=== PATIENT | male | born 1960 | race Caucasian/White ===

== ENCOUNTER → 2018-06-04 | Outpatient (REF) | payer MEDICARE ==
[2018-06-06 10:11] LABS: HEPATITIS C VIRUS ABY INDEX 0.1 INDEX (<0.8)
== END ==
LOC: M LAB REF 17:06
DX: Z01.89 Encounter for other specified special examinations (principal)
CPT/HCPCS: 86803

== ENCOUNTER 2018-08-20 07:47 | Day surgery (SDC) | payer MEDICARE ==
[~2018-08-20 07:47] MED LIST: NS 1,000 ML IV; PROPOFOL 200 MG/20 ML VIAL As Ordered
[2018-08-20] MEDS ORDERED: LIDOCAINE 2% INJ 100 MG/5 ML SDV (FOR ANES.) As Ordered (07:51)
[2018-08-20] MEDS ORDERED: fentaNYL 100 MCG/2 ML INJECTION (J3010) As Ordered (08:59)
== END 2018-08-20 10:10 | disposition home or self-care (01) ==
LOC: M OPP 07:47
DX: R19.5 Other fecal abnormalities (principal); K64.0 First degree hemorrhoids; K31.89 Other diseases of stomach and duodenum; K30 Functional dyspepsia; R13.10 Dysphagia, unspecified; I25.10 Atherosclerotic heart disease of native coronary artery without angina pectoris; I50.42 Chronic combined systolic (congestive) and diastolic (congestive) heart failure; I47.1 Supraventricular tachycardia; I11.0 Hypertensive heart disease with heart failure; I77.810 Thoracic aortic ectasia; G62.9 Polyneuropathy, unspecified; E78.00 Pure hypercholesterolemia, unspecified; Z79.02 Long term (current) use of antithrombotics/antiplatelets; Z79.82 Long term (current) use of aspirin; Z79.891 Long term (current) use of opiate analgesic; Z79.899 Other long term (current) drug therapy; Z91.048 Other nonmedicinal substance allergy status; Z95.5 Presence of coronary angioplasty implant and graft
CPT/HCPCS: 45378

== ENCOUNTER 2018-11-14 12:39 | Outpatient (CLI) | payer MEDICARE ==
[~2018-11-14] VITALS: Ht 160 cm; Wt 79.4 kg
[2018-11-14] VITALS (8 sets, daily range): BP systolic 113–140; BP diastolic 57–75
[~2018-11-14 12:39] MED LIST changes: +/ATOR40TA; +ACET500T2; +ACETAMINOPHEN TAB 650MG DOSE (2X325MG) PO SCH; +ASPI-222 PO; +ASPI325T; +ATOR80TA59 PO; +BACL1TAB9 PO; +CLOP75TA2 PO; +EFFE150C; +FLEXERIL; +FURO40TA2 PO; +LASI20TA; +LISI-538 PO; +LISI20TA5; +LOPR100T; +METO1TAB33 PO; +NITR0.4S; +NITR0.4S14 SL; -NS 1,000 ML IV; +OXYC-517 PO; +PLAV75TA2; +PROM12SU; -PROPOFOL 200 MG/20 ML VIAL As Ordered; +TRAM200T23 PO; +TRAM50TA2; +VENL150C43 PO; +diphenhydrAMINE 25 MG CAP PO SCH
[2018-11-14 16:11] LABS: PERCENT SATURATION 2.7 % (19.7-50.0)
== END 2018-11-14 18:35 | disposition home or self-care (01) ==
LOC: M INFU 12:39
PROVIDERS: ATTEND Internal Medicine
DX: D64.9 Anemia, unspecified (principal)
CPT/HCPCS: 36430; 82728; 83550; 86850; 86900; 86901; 86920; P9016

== ENCOUNTER 2019-09-16 14:23 | Emergency (ER) | payer MEDICARE ==
[~2019-09-16] VITALS: Ht 177.8 cm; Wt 73.9 kg
[~2019-09-16 14:23] MED LIST changes: -/ATOR40TA; -ACETAMINOPHEN TAB 650MG DOSE (2X325MG) PO SCH; -ASPI-222 PO; +ASPI-527 PO; +LIPI1TAB2; -diphenhydrAMINE 25 MG CAP PO SCH
[2019-09-16] MEDS ORDERED: ASPI81TA26 PO (14:40)
[2019-09-16] MEDS ORDERED: FURO20TA2 PO (14:42)
[2019-09-16] MEDS ORDERED: FERR325T18 PO (14:43)
[2019-09-16] MEDS ORDERED: OMEP-221 PO (14:43)
[2019-09-16] MEDS ORDERED: Medical Marijuana PO (14:44)
[2019-09-16 14:54] LABS: BASO # 0.1 10^3/uL (0.0-0.2); BASO % 1.2 % (0.0-1.0); EOS # 0.1 10^3/uL (0.0-0.5); EOS % 1.4 % (0.0-3.0); HEMATOCRIT 42.6 % (42.0-52.0); HEMOGLOBIN 14.9 g/dl (13.5-17.5); LYMPH % 25.5 % (24.0-44.0); MEAN CORPUSCULAR HEMOGLOBIN 32.7 pg (27.0-33.0); MEAN CORPUSCULAR VOLUME 93.4 fl (80.0-96.0); MONO # 0.7 10^3/uL (0.0-0.8); MONO % 9.3 % (0.0-5.0); NEUTROPHILS # 4.8 10^3/uL (1.5-8.5); NEUTROPHILS % 62.3 % (36.0-66.0); PLATELET COUNT, AUTOMATED 246 10^3/uL (150-450); RED BLOOD COUNT 4.56 10^6/uL (4.30-6.10); WHITE BLOOD COUNT 7.8 10^3/uL (4.0-10.0)
[2019-09-16 15:20] LABS: ALBUMIN 4.5 GM/DL (3.2-5.2); ALT/SGPT 35 U/L (12-78); BILIRUBIN,DIRECT 0.2 MG/DL (0.0-0.2); BILIRUBIN,TOTAL 0.7 MG/DL (0.2-1.0); BLOOD UREA NITROGEN 18 MG/DL (7-18); CALCIUM LEVEL 9.2 MG/DL (8.8-10.2); CARBON DIOXIDE LEVEL 27 MEQ/L (21-32); CHLORIDE LEVEL 106 MEQ/L (98-107); CK-MB VALUE MASS 2.7 NG/ML (<3.6); CPK CREATINE PHOSPHOKINASE 289 U/L (39-308); CREATININE FOR GFR 0.87 MG/DL (0.70-1.30); GLOMERULAR FILTRATION RATE > 60.0 (>49); GLUCOSE, FASTING 99 MG/DL (70-100); LIPASE 100 U/L (73-393); MB/CK RELATIVE INDEX 0.93 (< OR =4); POTASSIUM SERUM 3.9 MEQ/L (3.5-5.1); SODIUM LEVEL 139 MEQ/L (136-145); TOTAL PROTEIN 7.8 GM/DL (6.4-8.2); TROPONIN I < 0.02 NG/ML (< 0.10)
[2019-09-16 15:36] LABS: INR 1.01; PROTHROMBIN TIME 13.1 SECONDS (11.8-14.0)
[2019-09-16] MEDS ORDERED: ISOVUE-370 76% 100ML VIAL (Q9967) As Ordered ONE (15:41)
--- NOTE | 2019-09-16 15:44 | REP ---
Clinical: Chest pain . Comparison: 03/24/2010 . Findings: The mediastinum and cardiac silhouette are stable and within normal limits for portable technique. Evidence of prior sternotomy and CABG. The lung martinez demonstrate chronic interstitial changes without acute consolidation, effusion, or pneumothorax. Skeletal structures demonstrate generative changes and prior right shoulder replacement. Impression: No acute cardiopulmonary process appreciated. Electronically Signed by Sanjiv Newsome MD 09/16/2019 03:35 P
[2019-09-16] MEDS ORDERED: ASPIRIN 81 MG CHEW TABLET PO ONE (15:45)
--- NOTE | 2019-09-16 16:56 | REP ---
Clinical: Chest pain and shortness of breath. Technique: Axial contrast enhanced images from the thoracic inlet to the upper abdomen using 100 ml Isovue 370 intravenous contrast material with multiplanar re-formations. Findings: Satisfactory enhancement of the pulmonary vasculature is achieved and no filling defects are identified to suggest pulmonary embolus. Further evaluation of the mediastinum demonstrates atherosclerotic changes to the thoracic aorta and coronary arteries without aortic aneurysm or cardiomegaly. No pericardial effusion. Evidence of prior sternotomy and CABG noted. The bilateral lung martinez demonstrate emphysematous changes along with scattered subpleural fibrosis and mild bronchiectasis. Small area of atelectasis/infiltrate at the right base. No effusion. No pneumothorax. Mild hilar adenopathy suggested. Surrounding musculoskeletal structures demonstrate age-related changes without focal abnormality. Impression: 1. No evidence for pulmonary embolus. 2. Chronic findings including emphysematous changes with scattered subpleural fibrosis. 3. Minimal right basilar atelectasis/infiltrate warrants followup. Electronically Signed by Sanjiv Newsome MD 09/16/2019 04:48 P
[2019-09-16 21:04] LABS: CK-MB VALUE MASS 1.9 NG/ML (<3.6); CPK CREATINE PHOSPHOKINASE 227 U/L (39-308); MB/CK RELATIVE INDEX 0.84 (< OR =4); TROPONIN I < 0.02 NG/ML (< 0.10)
[2019-09-16 21:30] VITALS: BP 108/91
[2019-09-16] MEDS ORDERED: NITR0.4S14 SL (22:00)
--- NOTE | 2019-09-17 | ECGEPIP ---
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
--- NOTE | 2019-09-17 00:05 | ECGEPIP ---
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
--- NOTE | 2019-09-21 13:23 | ED PDOC ---
Post-Departure Follow-Up dr banuelos faxed formal report of cta chest for fu Georgiana Bah MD Sep 21, 2019 13:23
== END 2019-09-16 22:07 | disposition home or self-care (01) ==
LOC: M ED 14:23
DX: R07.9 Chest pain, unspecified (principal); R06.01 Orthopnea; I10 Essential (primary) hypertension; E78.5 Hyperlipidemia, unspecified; K21.9 Gastro-esophageal reflux disease without esophagitis; K44.9 Diaphragmatic hernia without obstruction or gangrene; I25.2 Old myocardial infarction; Z91.048 Other nonmedicinal substance allergy status; Z79.899 Other long term (current) drug therapy; Z79.82 Long term (current) use of aspirin; Z79.01 Long term (current) use of anticoagulants; Z87.891 Personal history of nicotine dependence
CPT/HCPCS: 36415; 71045; 71275; 80048; 80076; 82550; 82553; 83690; 84484; 85025; 85610; 93005; 93041; 94760; 99285; Q9967

== ENCOUNTER → 2019-10-13 | Outpatient (CLI) | payer MEDICARE ==
[~2019-10-13] MED LIST changes: +ASPI81TA26 PO; +FERR325T18 PO; +FURO20TA2 PO; +Medical Marijuana PO; +OMEP-221 PO
--- NOTE | 2019-10-13 11:40 | REP ---
Clinical: Right hand pain Technique: AP, lateral, bilateral oblique views right hand . Findings: The osseous structures and joint spaces are intact and there is no evidence for acute fracture or dislocation. Generalized age-related arthritic changes noted. Surrounding soft tissues are unremarkable. No subcutaneous emphysema or radiodense foreign body. Impression: Generalized age-related changes. Electronically Signed by Sanjiv Newsome MD 10/13/2019 11:31 A
--- NOTE | 2019-10-13 11:41 | REP ---
Clinical: Pain Technique: AP, lateral, bilateral oblique views right wrist . Findings: The carpal bones, surrounding osseous structures, soft tissues, and joint spaces are essentially age-appropriate. There is no evidence for acute fracture or dislocation. No subcutaneous emphysema or radiodense foreign body. Impression: Normal age-appropriate right wrist series. No acute fracture or dislocation Electronically Signed by Sanjiv Newsome MD 10/13/2019 11:32 A
--- NOTE | 2019-10-13 11:42 | REP ---
Clinical: Pain. Technique: AP and lateral views of the right forearm. Findings: No acute fracture dislocation. No subcutaneous emphysema. No foreign body. Impression: Normal age-appropriate right forearm radiographs. Electronically Signed by Sanjiv Newsome MD 10/13/2019 11:34 A
== END ==
LOC: M WUC 11:16
PROVIDERS: ATTEND Nurse Practitioner Family
DX: M19.041 Primary osteoarthritis, right hand (principal)

== ENCOUNTER → 2021-12-05 | Outpatient (CLI) | payer MEDICARE ==
[~2021-12-05] MED LIST changes: -LISI-538 PO; +LISI20TA33 PO; -OMEP-221 PO; +OMEP40CA5 PO
[2021-12-05 16:22] LABS: HEMATOCRIT 41.9 % (42.0-52.0); HEMOGLOBIN 13.8 g/dl (13.5-17.5); MEAN CORPUSCULAR HEMOGLOBIN 31.8 pg (27.0-33.0); MEAN CORPUSCULAR HGB CONC 32.9 g/dl (32.0-36.5); MEAN CORPUSCULAR VOLUME 96.5 fl (80.0-96.0); PLATELET COUNT, AUTOMATED 215 10^3/uL (150-450); RED BLOOD COUNT 4.34 10^6/uL (4.30-6.10); WHITE BLOOD COUNT 9.5 10^3/uL (4.0-10.0)
[2021-12-05 16:35] LABS: INR 0.94
[2021-12-05 16:36] LABS: PARTIAL THROMBOPLASTIN TIME 32.6 SECONDS (25.9-37.0)
[2021-12-05 16:43] LABS: BLOOD UREA NITROGEN 20 MG/DL (7-18); CALCIUM LEVEL 9.3 MG/DL (8.8-10.2); CARBON DIOXIDE LEVEL 28 MEQ/L (21-32); CHLORIDE LEVEL 105 MEQ/L (98-107); GLOMERULAR FILTRATION RATE > 60.0 (>49); GLUCOSE, FASTING 72 MG/DL (70-100); POTASSIUM SERUM 4.3 MEQ/L (3.5-5.1); SODIUM LEVEL 139 MEQ/L (136-145)
== END ==
LOC: M WUC 10:55
PROVIDERS: ATTEND Orthopaedic Surgery
DX: Z01.818 Encounter for other preprocedural examination (principal); R58 Hemorrhage, not elsewhere classified

== ENCOUNTER → 2022-04-30 | Outpatient (CLI) | payer MEDICARE ==
[~2022-04-30] MED LIST changes: +TRAM200T20 PO; -TRAM200T23 PO
== END ==
LOC: M WUC 11:09
PROVIDERS: ATTEND Physician Assistant
DX: M79.642 Pain in left hand (principal)

== ENCOUNTER → 2022-08-14 | Outpatient (CLI) | payer MEDICARE ==
[~2022-08-14] MED LIST changes: +E-Z-GAS II EFFERVESCENT PACKET (SODIUM BICARB./CITRIC ACID/SIMETHICONE) As Ordered ONE; +E-Z-HD 98% w/w 340GM SUSP BTL As Ordered ONE; +E-Z-PAQUE 96% w/w SUSP 176GM BTL As Ordered ONE
== END ==
LOC: M RAD 08:00
PROVIDERS: ATTEND Internal Medicine
DX: R13.10 Dysphagia, unspecified (principal); Q38.7 Congenital pharyngeal pouch

== ENCOUNTER → 2024-02-24 | Outpatient (REF) | payer MEDICARE ==
[~2024-02-24] MED LIST changes: -E-Z-GAS II EFFERVESCENT PACKET (SODIUM BICARB./CITRIC ACID/SIMETHICONE) As Ordered ONE; -E-Z-HD 98% w/w 340GM SUSP BTL As Ordered ONE; -E-Z-PAQUE 96% w/w SUSP 176GM BTL As Ordered ONE
[2024-02-24 16:30] LABS: APPEARANCE, URINE HAZY (CLEAR); BACTERIA, URINE AUTO NEGATIVE (NEGATIVE); BILIRUBIN, URINE AUTO NEGATIVE (NEGATIVE); BLOOD, URINE BLOOD 3+ (NEGATIVE); COLOR, URINE AMBER (YELLOW); GLUCOSE, URINE (UA) AUTO NEGATIVE (NEGATIVE); KETONE, URINE AUTO NEGATIVE (NEGATIVE); LEUKOCYTE ESTERASE, URINE AUTO NEGATIVE (NEGATIVE); MUCUS, URINE SMALL (NEGATIVE); NITRITE, URINE AUTO NEGATIVE (NEGATIVE); PROTEIN, URINE AUTO 1+ mg/dL (NEGATIVE); RBC, URINE AUTO TNTC /HPF (0-3); SPECIFIC GRAVITY URINE AUTO 1.035 (1.002-1.035); SQUAMOUS EPITHELIAL CELL UR AU 1 /HPF (0-6); WBC, URINE AUTO 1 /HPF (0-3)
== END ==
LOC: M LAB REF 16:00
PROVIDERS: ATTEND Internal Medicine
DX: R31.0 Gross hematuria (principal)

== ENCOUNTER → 2024-03-02 | Outpatient (REF) | payer MEDICARE | LOC: M LAB REF 16:20 | PROVIDERS: ATTEND Internal Medicine | DX: R31.0 Gross hematuria (principal) ==

== ENCOUNTER → 2024-03-06 | Outpatient (CLI) | payer MEDICARE ==
[~2024-03-06] MED LIST changes: +ISOVUE-370 76% 100ML VIAL As Ordered ONE
== END ==
LOC: M RAD 13:41
PROVIDERS: ATTEND Internal Medicine
DX: R31.0 Gross hematuria (principal); N20.0 Calculus of kidney; K80.20 Calculus of gallbladder without cholecystitis without obstruction
CPT/HCPCS: 74178; Q9967

== ENCOUNTER → 2024-03-09 | Outpatient (REF) | payer MEDICARE ==
[~2024-03-09] MED LIST changes: -ISOVUE-370 76% 100ML VIAL As Ordered ONE
== END ==
LOC: M LAB REF 12:46
PROVIDERS: ATTEND Internal Medicine
DX: R31.0 Gross hematuria (principal)

== ENCOUNTER → 2024-03-13 | Outpatient (REF) | payer MEDICARE ==
[~2024-03-13] MED LIST changes: +GABA-1171 PO
[2024-03-13 18:02] LABS: APPEARANCE, URINE HAZY (CLEAR); BACTERIA, URINE AUTO NEGATIVE (NEGATIVE); BILIRUBIN, URINE AUTO NEGATIVE (NEGATIVE); BLOOD, URINE BLOOD 3+ (NEGATIVE); COLOR, URINE YELLOW (YELLOW); GLUCOSE, URINE (UA) AUTO NEGATIVE (NEGATIVE); KETONE, URINE AUTO NEGATIVE (NEGATIVE); LEUKOCYTE ESTERASE, URINE AUTO NEGATIVE (NEGATIVE); NITRITE, URINE AUTO NEGATIVE (NEGATIVE); PROTEIN, URINE AUTO 1+ mg/dL (NEGATIVE); RBC, URINE AUTO TNTC /HPF (0-3); SPECIFIC GRAVITY URINE AUTO 1.014 (1.002-1.035); SQUAMOUS EPITHELIAL CELL UR AU 0 /HPF (0-6); UROBILINOGEN, URINE AUTO 0.2 mg/dL (0.0-2.0); WBC, URINE AUTO 2 /HPF (0-3)
== END ==
LOC: M LABSMT 13:34
PROVIDERS: ATTEND Urology
DX: R31.0 Gross hematuria (principal)

== ENCOUNTER → 2024-03-19 | Outpatient (REF) | payer MEDICARE ==
[~2024-03-19] MED LIST changes: -GABA-1171 PO
== END ==
LOC: M SMT 03-18 13:00 → M LABWUC 13:00 → M SMT 13:00
PROVIDERS: ATTEND Urology
DX: R31.0 Gross hematuria (principal); Z12.5 Encounter for screening for malignant neoplasm of prostate
CPT/HCPCS: 36415; G0103

== ENCOUNTER → 2024-04-01 | Outpatient (REF) | payer MEDICARE ==
[2024-04-01 18:02] LABS: APPEARANCE, URINE CLEAR (CLEAR); BACTERIA, URINE AUTO NEGATIVE (NEGATIVE); BILIRUBIN, URINE AUTO NEGATIVE (NEGATIVE); BLOOD, URINE BLOOD 2+ (NEGATIVE); COLOR, URINE YELLOW (YELLOW); GLUCOSE, URINE (UA) AUTO NEGATIVE (NEGATIVE); KETONE, URINE AUTO NEGATIVE (NEGATIVE); LEUKOCYTE ESTERASE, URINE AUTO NEGATIVE (NEGATIVE); MUCUS, URINE SMALL (NEGATIVE); NITRITE, URINE AUTO NEGATIVE (NEGATIVE); PROTEIN, URINE AUTO 1+ mg/dL (NEGATIVE); RBC, URINE AUTO 41 /HPF (0-3); SPECIFIC GRAVITY URINE AUTO 1.026 (1.002-1.035); SQUAMOUS EPITHELIAL CELL UR AU 0 /HPF (0-6); UROBILINOGEN, URINE AUTO 0.2 mg/dL (0.0-2.0); WBC, URINE AUTO 1 /HPF (0-3)
== END ==
LOC: M SMT 16:57
PROVIDERS: ATTEND Urology
DX: R31.0 Gross hematuria (principal)

== ENCOUNTER → 2024-05-11 | Outpatient (CLI) | payer MEDICARE ==
[~2024-05-11] MED LIST changes: +GABA-1171 PO
[2024-05-11 17:48] LABS: HEMATOCRIT 37.8 % (42.0-52.0); HEMOGLOBIN 12.3 g/dl (13.5-17.5); MEAN CORPUSCULAR HEMOGLOBIN 32.6 pg (27.0-33.0); MEAN CORPUSCULAR HGB CONC 32.5 g/dl (32.0-36.5); MEAN CORPUSCULAR VOLUME 100.3 fl (80.0-96.0); PLATELET COUNT, AUTOMATED 256 10^3/uL (150-450); RED BLOOD COUNT 3.77 10^6/uL (4.30-6.10); WHITE BLOOD COUNT 10.8 10^3/uL (4.0-10.0)
[2024-05-11 18:12] LABS: ALBUMIN 3.8 G/DL (3.2-5.2); ALKALINE PHOSPHATASE 107 U/L (46-116); ALT/SGPT 21 U/L (7.0-40); AST/SGOT 21 U/L (<34); BILIRUBIN,TOTAL 0.3 MG/DL (0.3-1.2); BLOOD UREA NITROGEN 22 MG/DL (9-23); CALCIUM LEVEL 9.3 MG/DL (8.3-10.6); CARBON DIOXIDE LEVEL 28 MMOL/L (20-31); CHLORIDE LEVEL 106 MMOL/L (98-107); CREATININE FOR GFR 0.81 MG/DL (0.70-1.30); GLOMERULAR FILTRATION RATE > 60.0 (>49); GLUCOSE, FASTING 106 MG/DL (74-106); POTASSIUM SERUM 4.5 MMOL/L (3.5-5.1); SODIUM LEVEL 141 MMOL/L (136-145); TOTAL PROTEIN 6.8 G/DL (5.7-8.2)
== END ==
LOC: M WUC 14:07
PROVIDERS: ATTEND Urology
DX: R31.0 Gross hematuria (principal); R91.8 Other nonspecific abnormal finding of lung field

== ENCOUNTER 2024-05-18 07:10 | Day surgery (SDC) | payer MEDICARE ==
[~2024-05-18] VITALS: Ht 177.8 cm; Wt 69.9 kg
[2024-05-18] MEDS ORDERED: propofoL 200 MG/20 ML VIAL As Ordered ONE (07:45)
[2024-05-18] MEDS ORDERED: LIDOCAINE 2% INJ 100 MG/5 ML SYRINGE As Ordered ONE (07:45)
[2024-05-18] MEDS ORDERED: fentaNYL 100 MCG/2 ML INJECTION As Ordered ONE (07:46)
[2024-05-18] MEDS ORDERED: MIDAZOLAM INJ 2MG/2ML VIAL As Ordered ONE (07:46)
[2024-05-18] MEDS: LR 1,000 ML IV SCH (08:06)
[2024-05-18] MEDS: ceFAZolin SOD 2 GM in IV 1 EA IV ONE (08:30)
[2024-05-18] MEDS: ISOVUE-300 61% 100ML VIAL As Ordered ONE (08:44)
[2024-05-18] MEDS ORDERED: ACETAMINOPHEN 1000MG 100ML IV BAG As Ordered ONE (08:44)
[2024-05-18] MEDS ORDERED: ONDANSETRON 4MG 2ML VIAL As Ordered ONE (08:46)
[2024-05-18] MEDS ORDERED: oxyCODONE 5MG TAB PO PRN (09:05)
[2024-05-18] MEDS ORDERED: ONDANSETRON 4MG 2ML VIAL IV PRN (09:05)
[2024-05-18] MEDS ORDERED: HYDROMORPHONE HCL 0.5 MG/ 0.5 ML SYRINGE IV PRN (09:05)
[2024-05-18] MEDS ORDERED: fentaNYL 100 MCG/2 ML INJECTION IV PRN (09:05)
[2024-05-18] MEDS ORDERED: LR 1,000 ML IV SCH (09:05)
[2024-05-18 09:37] VITALS: BP 142/78; TEMP 98.2; O2SAT 97
== END 2024-05-18 10:01 | disposition home or self-care (01) ==
LOC: M SDC 07:10
PROVIDERS: ATTEND Urology
DX: R31.0 Gross hematuria (principal); I25.10 Atherosclerotic heart disease of native coronary artery without angina pectoris; I25.2 Old myocardial infarction; Z95.5 Presence of coronary angioplasty implant and graft; I10 Essential (primary) hypertension; E78.00 Pure hypercholesterolemia, unspecified; K21.9 Gastro-esophageal reflux disease without esophagitis; M54.9 Dorsalgia, unspecified; Z91.048 Other nonmedicinal substance allergy status; Z79.899 Other long term (current) drug therapy; Z79.02 Long term (current) use of antithrombotics/antiplatelets; Z79.82 Long term (current) use of aspirin
CPT/HCPCS: 52351; 76000; C1769; J0131; J0690; J1100; J2250; J2405; J3010; Q9967

== ENCOUNTER → 2024-05-27 | Outpatient (CLI) | payer MEDICARE | LOC: M WUC 09:47 | PROVIDERS: ATTEND Physician Assistant Medical | DX: M54.16 Radiculopathy, lumbar region (principal); M54.14 Radiculopathy, thoracic region; Z98.890 Other specified postprocedural states ==

== ENCOUNTER → 2024-07-29 | Outpatient (CLI) | payer MEDICARE | LOC: M PLAIMG 08:56 | PROVIDERS: ATTEND Internal Medicine | DX: R91.8 Other nonspecific abnormal finding of lung field (principal); J47.9 Bronchiectasis, uncomplicated; K80.20 Calculus of gallbladder without cholecystitis without obstruction ==

== ENCOUNTER → 2024-08-18 | Outpatient (CLI) | payer MEDICARE | LOC: M PLARAD 14:26 | PROVIDERS: ATTEND Internal Medicine | DX: R91.1 Solitary pulmonary nodule (principal) | CPT/HCPCS: 78815; A9552 ==

== ENCOUNTER → 2024-09-01 | Outpatient (CLI) | payer MEDICARE ==
[2024-09-01 12:15] LABS: PLATELET COUNT, AUTOMATED 259 10^3/uL (150-450)
[2024-09-01 12:32] LABS: PARTIAL THROMBOPLASTIN TIME 31.5 SECONDS (24.8-34.2); PROTHROMBIN TIME 13.5 SECONDS (12.5-14.5)
== END ==
LOC: M WUC 10:26
PROVIDERS: ATTEND Internal Medicine Critical Care Medicine
DX: R91.8 Other nonspecific abnormal finding of lung field (principal); Z79.01 Long term (current) use of anticoagulants

== ENCOUNTER → 2024-09-02 | Outpatient (CLI) | payer MEDICARE ==
[~2024-09-02] MED LIST changes: +PROHANCE 279.3MG/ML 15ML VIAL As Ordered ONE
== END ==
LOC: M RAD 12:09
PROVIDERS: ATTEND Internal Medicine
DX: M48.062 Spinal stenosis, lumbar region with neurogenic claudication (principal); M43.16 Spondylolisthesis, lumbar region; M51.360 Other intervertebral disc degeneration, lumbar region with discogenic back pain only
CPT/HCPCS: 72158; A9576

== ENCOUNTER → 2024-09-14 | Outpatient (CLI) | payer MEDICARE ==
[~2024-09-14] MED LIST changes: +LIDOCAINE 1% MDV 20ML VIAL As Ordered ONE; -PROHANCE 279.3MG/ML 15ML VIAL As Ordered ONE
[2024-09-14 13:48] VITALS: TEMP 97.7
[2024-09-14 14:17] VITALS: BP 133/71; O2SAT 98
== END ==
LOC: M IRPRO 13:41
PROVIDERS: ATTEND Internal Medicine Critical Care Medicine
DX: R91.8 Other nonspecific abnormal finding of lung field (principal); C79.89 Secondary malignant neoplasm of other specified sites

== ENCOUNTER → 2024-10-01 | Outpatient (CLI) | payer MEDICARE ==
[~2024-10-01] MED LIST changes: +GABA-1490; -LIDOCAINE 1% MDV 20ML VIAL As Ordered ONE; +OXYC20TA2 PO; +PROM25TA12
== END ==
LOC: M ONCR 09:02
PROVIDERS: ATTEND General Practice
DX: C34.11 Malignant neoplasm of upper lobe, right bronchus or lung (principal); Z87.891 Personal history of nicotine dependence; Z91.048 Other nonmedicinal substance allergy status; Z79.891 Long term (current) use of opiate analgesic; Z79.82 Long term (current) use of aspirin; Z79.02 Long term (current) use of antithrombotics/antiplatelets; Z79.899 Other long term (current) drug therapy

== ENCOUNTER → 2024-10-05 | Outpatient (CLI) | payer MEDICARE ==
[~2024-10-05] MED LIST changes: +LIDO30CR18 TOP; +LIDOCAINE 1% MDV 20ML VIAL As Ordered ONE; +MIDAZOLAM INJ 2MG/2ML VIAL As Ordered ONE; +NS (Normal Saline) 0.9% 1,000 ML IV SCH; +ONDA-84 PO; +PROC10TA5 PO; +ceFAZolin 2 GM/D5W 50 ML IV BAG As Ordered ONE; +fentaNYL 100 MCG/2 ML INJECTION As Ordered ONE
[2024-10-05 12:40] VITALS: TEMP 97.3
[2024-10-05] MEDS: ceFAZolin SOD 2 GM in IV 1 EA IV ONE (13:00)
[2024-10-05 15:00] VITALS: BP 127/70; O2SAT 94
== END ==
LOC: M IRPRO 11:59
PROVIDERS: ATTEND Internal Medicine Medical Oncology
DX: C34.90 Malignant neoplasm of unspecified part of unspecified bronchus or lung (principal)
CPT/HCPCS: 36561; 99152; 99153; C1769; C1894; J0690; J2250; J3010

== ENCOUNTER 2024-10-06 07:50 | Outpatient (RCR) | payer MEDICARE ==
[~2024-10-06 07:50] MED LIST changes: -LIDO30CR18 TOP; -LIDOCAINE 1% MDV 20ML VIAL As Ordered ONE; -MIDAZOLAM INJ 2MG/2ML VIAL As Ordered ONE; -NS (Normal Saline) 0.9% 1,000 ML IV SCH; -ONDA-84 PO; -PROC10TA5 PO; -ceFAZolin 2 GM/D5W 50 ML IV BAG As Ordered ONE; -fentaNYL 100 MCG/2 ML INJECTION As Ordered ONE
[2024-10-06] MEDS ORDERED: LIDO30CR18 TOP (13:33)
[2024-10-06] MEDS ORDERED: ONDA-84 PO (14:26)
[2024-10-06] MEDS ORDERED: PROC10TA5 PO (14:26)
== END 2024-10-20 ==
LOC: M ONCR 07:50
PROVIDERS: ATTEND General Practice
DX: Z51.0 Encounter for antineoplastic radiation therapy (principal); C34.11 Malignant neoplasm of upper lobe, right bronchus or lung

== ENCOUNTER → 2024-10-29 | Outpatient (CLI) | payer MEDICARE ==
[~2024-10-29] MED LIST changes: +LIDO30CR18 TOP; +ONDA-84 PO; +PROC10TA5 PO; +PROHANCE 279.3MG/ML 15ML VIAL As Ordered ONE
== END ==
LOC: M RAD 08:51
PROVIDERS: ATTEND General Practice
DX: C34.11 Malignant neoplasm of upper lobe, right bronchus or lung (principal); R90.82 White matter disease, unspecified

== ENCOUNTER 2024-10-30 11:35 | Emergency (ER) | payer MEDICARE ==
[~2024-10-30 11:35] MED LIST changes: -PROHANCE 279.3MG/ML 15ML VIAL As Ordered ONE
[2024-10-30 11:44] VITALS: BP 119/60; TEMP 98.7; O2SAT 95
[2024-10-30] MEDS: ONDANSETRON 4MG 2ML VIAL IV ONE (12:09)
[2024-10-30 12:25] LABS: VENOUS BASE EXCESS -1.1 (-2.0-2.0); VENOUS HCO3 23.4 MMOL/L (23.0-27.0); VENOUS O2 SATURATION 92.9 % (60.0-80.0); VENOUS PARTIAL PRESSURE CO2 38.7 mmHg (38.0-50.0); VENOUS PARTIAL PRESSURE O2 65.6 mmHg (30.0-50.0); VENOUS STANDARD HCO3 23.4 MMOL/L; VENOUS TOTAL CO2 24.6 MMOL/L (24.0-28.0)
[2024-10-30 12:34] LABS: BASO % 0.2 % (0.0-1.0); HEMATOCRIT 32.2 % (42.0-52.0); HEMOGLOBIN 10.8 g/dl (13.5-17.5); LYMPH # 0.9 10^3/uL (1.5-5.0); LYMPH % 6.8 % (24.0-44.0); MEAN CORPUSCULAR HEMOGLOBIN 32.6 pg (27.0-33.0); MEAN CORPUSCULAR HGB CONC 33.5 g/dl (32.0-36.5); MEAN CORPUSCULAR VOLUME 97.3 fl (80.0-96.0); MONO # 0.4 10^3/uL (0.0-0.8); MONO % 2.7 % (2.0-8.0); NEUTROPHILS # 11.8 10^3/uL (1.5-8.5); NEUTROPHILS % 89.8 % (36.0-66.0); PLATELET COUNT, AUTOMATED 260 10^3/uL (150-450); RED BLOOD COUNT 3.31 10^6/uL (4.30-6.10); WHITE BLOOD COUNT 13.2 10^3/uL (4.0-10.0)
[2024-10-30 12:45] LABS: INR 0.96; PARTIAL THROMBOPLASTIN TIME 24.4 SECONDS (24.8-34.2); PROTHROMBIN TIME 13.1 SECONDS (12.5-14.5)
[2024-10-30 13:03] LABS: AMYLASE 44 U/L (30-118); C REACTIVE PROTEIN QUANTITATIV 2.28 MG/DL (<1.0)
[2024-10-30 13:04] LABS: ALKALINE PHOSPHATASE 78 U/L (40-129); ALT/SGPT 22 U/L (7.0-40); AST/SGOT 21 U/L (<34); BILIRUBIN,DIRECT < 0.1 MG/DL (<0.4); BILIRUBIN,TOTAL 0.2 MG/DL (0.3-1.2); BLOOD UREA NITROGEN 40 MG/DL (9-23); CALCIUM LEVEL 8.8 MG/DL (8.3-10.6); CARBON DIOXIDE LEVEL 28 MMOL/L (20-31); CHLORIDE LEVEL 108 MMOL/L (98-107); CREATININE FOR GFR 0.87 MG/DL (0.70-1.30); GLOMERULAR FILTRATION RATE > 60.0 (>49); GLUCOSE, FASTING 100 MG/DL (74-106); POTASSIUM SERUM 3.9 MMOL/L (3.5-5.1); SODIUM LEVEL 145 MMOL/L (136-145); TOTAL PROTEIN 6.6 G/DL (5.7-8.2)
[2024-10-30 13:15] LABS: PROCALCITONIN 0.05 ng/ml
== END 2024-10-30 13:14 | disposition left against medical advice (07) ==
LOC: M ED 11:35
DX: R11.10 Vomiting, unspecified (principal); I25.2 Old myocardial infarction; E78.5 Hyperlipidemia, unspecified; I10 Essential (primary) hypertension; M54.50 Low back pain, unspecified; Z87.891 Personal history of nicotine dependence; Z86.79 Personal history of other diseases of the circulatory system; Z91.048 Other nonmedicinal substance allergy status; Z79.82 Long term (current) use of aspirin; Z79.02 Long term (current) use of antithrombotics/antiplatelets; Z79.83 Long term (current) use of bisphosphonates; Z79.899 Other long term (current) drug therapy; Z53.9 Procedure and treatment not carried out, unspecified reason
CPT/HCPCS: 71045; 80048; 80076; 82150; 82803; 83605; 84145; 85025; 85610; 85730; 86140; 86850; 86900; 86901; 87040; 87486; 87581; 87633; 87798; 93005; 93041; 94760; 96374; 99284; J2405

== ENCOUNTER → 2024-11-11 | Outpatient (CLI) | payer MEDICARE ==
[~2024-11-11] VITALS: Ht 177.8 cm; Wt 72.3 kg
[~2024-11-11] MED LIST changes: +GABA-1490 OR; +MS C30TA6 PO; +OLAN5ZYD PO; +OXYC10TA12 PO
[2024-11-11 13:17] VITALS: BP 121/70; O2SAT 96
== END ==
LOC: M PAL 12:59
PROVIDERS: ATTEND Family Medicine
DX: Z51.5 Encounter for palliative care (principal); C34.90 Malignant neoplasm of unspecified part of unspecified bronchus or lung; G89.3 Neoplasm related pain (acute) (chronic); G89.29 Other chronic pain; K85.90 Acute pancreatitis without necrosis or infection, unspecified; R53.83 Other fatigue; R63.0 Anorexia; R11.0 Nausea; M54.9 Dorsalgia, unspecified; Z79.82 Long term (current) use of aspirin; Z79.02 Long term (current) use of antithrombotics/antiplatelets; Z79.891 Long term (current) use of opiate analgesic; Z79.899 Other long term (current) drug therapy; Z91.048 Other nonmedicinal substance allergy status; Z92.21 Personal history of antineoplastic chemotherapy; Z92.3 Personal history of irradiation

== ENCOUNTER → 2024-11-20 | Outpatient (RCR) | payer MEDICARE ==
[~2024-11-20] MED LIST changes: +MAGICMW SS; +PANT40TA29 PO
== END ==
LOC: M ONCR 10-29 10:23
PROVIDERS: ATTEND General Practice
DX: Z51.0 Encounter for antineoplastic radiation therapy (principal); C34.11 Malignant neoplasm of upper lobe, right bronchus or lung

== ENCOUNTER → 2024-12-01 | Outpatient (CLI) | payer MEDICARE ==
[~2024-12-01] MED LIST changes: +LEVO1TAB40 PO
[2024-12-01 10:56] LABS: BASO % 2.1 % (0.0-1.0); EOS % 1.6 % (0.0-3.0); HEMATOCRIT 28.5 % (42.0-52.0); HEMOGLOBIN 9.3 g/dl (13.5-17.5); LYMPH # 0.2 10^3/uL (1.5-5.0); LYMPH % 9.9 % (24.0-44.0); MEAN CORPUSCULAR HEMOGLOBIN 32.4 pg (27.0-33.0); MEAN CORPUSCULAR HGB CONC 32.6 g/dl (32.0-36.5); MEAN CORPUSCULAR VOLUME 99.3 fl (80.0-96.0); MONO # 0.2 10^3/uL (0.0-0.8); MONO % 9.4 % (2.0-8.0); NEUTROPHILS # 1.5 10^3/uL (1.5-8.5); RED BLOOD COUNT 2.87 10^6/uL (4.30-6.10); WHITE BLOOD COUNT 1.9 10^3/uL (4.0-10.0)
[2024-12-01 11:28] LABS: ALBUMIN 3.4 G/DL (3.2-5.2); ALKALINE PHOSPHATASE 79 U/L (40-129); ALT/SGPT 17 U/L (7.0-40); AST/SGOT 14 U/L (<34); BILIRUBIN,TOTAL 0.4 MG/DL (0.3-1.2); BLOOD UREA NITROGEN 34 MG/DL (9-23); CALCIUM LEVEL 9.1 MG/DL (8.3-10.6); CARBON DIOXIDE LEVEL 29 MMOL/L (20-31); CHLORIDE LEVEL 110 MMOL/L (98-107); CREATININE FOR GFR 0.92 MG/DL (0.70-1.30); GLOMERULAR FILTRATION RATE > 60.0 (>49); GLUCOSE, FASTING 118 MG/DL (74-106); MAGNESIUM LEVEL 1.6 MG/DL (1.8-2.4); POTASSIUM SERUM 4.3 MMOL/L (3.5-5.1); SODIUM LEVEL 145 MMOL/L (136-145); TOTAL PROTEIN 7.3 G/DL (5.7-8.2)
[2024-12-01 11:32] LABS: PLATELET COUNT, AUTOMATED 57 10^3/uL (150-450)
[2024-12-01] MEDS: NS (Normal Saline) 0.9% 1,000 ML IV ONE (11:47)
[2024-12-01] MEDS: dexAMETHasone 20MG/5ML VIAL IV ONE (11:47)
[2024-12-01] MEDS: SODIUM CHLORIDE 0.9% INJ 10 ML SYR IV ONE (13:00)
== END ==
LOC: M ONCR 10:31
PROVIDERS: ATTEND General Practice
DX: E86.0 Dehydration (principal); C34.11 Malignant neoplasm of upper lobe, right bronchus or lung

== ENCOUNTER → 2024-12-01 | Outpatient (CLI) | payer MEDICARE ==
[~2024-12-01] VITALS: Ht 180.3 cm; Wt 70.5 kg
[~2024-12-01] MED LIST changes: +ACET32TAB PO; +AMOX1SUS19 PO; +ATIV1TAB10 PO; +ATIV1TAB7 PO; +ATRO2DRO4 SL; +DOXY100T PO; +GABA-1172 PO; +HYOS125TA PO; +LIDO1ADH20 TP; +LIDO5TD TD; +LISI30TA4 PO; +LORA1TAB23 PO; +MORP1CAP PO; +MORP1TAB21 PO; +MORP30TASA PO; +MYLASSUD PO; +ONDA-83 PO; +OXYC30TA PO; +PROM25TA12 PO; +SUCR1SS PO; +VENL75CA47 PO
[2024-12-01 13:45] VITALS: BP 99/64; O2SAT 95
== END ==
LOC: M PAL 13:18
PROVIDERS: ATTEND Family Medicine
DX: C34.11 Malignant neoplasm of upper lobe, right bronchus or lung (principal); K85.90 Acute pancreatitis without necrosis or infection, unspecified; Z79.69 Long term (current) use of other immunomodulators and immunosuppressants; Z79.82 Long term (current) use of aspirin; Z79.899 Other long term (current) drug therapy; Z91.048 Other nonmedicinal substance allergy status; Z92.3 Personal history of irradiation
CPT/HCPCS: 36591; 80053; 83735; 85025; 85049; 85055; 96360; G0463; J1100; J1642

== ENCOUNTER → 2024-12-15 | Outpatient (CLI) | payer MEDICARE ==
[~2024-12-15] MED LIST changes: -ACET32TAB PO; -AMOX1SUS19 PO; -ATIV1TAB10 PO; -ATIV1TAB7 PO; -ATRO2DRO4 SL; -DOXY100T PO; -GABA-1172 PO; -HYOS125TA PO; -LIDO1ADH20 TP; -LIDO5TD TD; -LISI30TA4 PO; -MORP1CAP PO; -MORP1TAB21 PO; -MORP30TASA PO; -MYLASSUD PO; -ONDA-83 PO; -PROM25TA12 PO; -SUCR1SS PO; -VENL75CA47 PO
== END ==
LOC: M PAL 13:09
PROVIDERS: ATTEND Physician Assistant
DX: Z51.5 Encounter for palliative care (principal); C34.90 Malignant neoplasm of unspecified part of unspecified bronchus or lung; Z92.3 Personal history of irradiation; Z79.891 Long term (current) use of opiate analgesic; Z79.82 Long term (current) use of aspirin; Z79.899 Other long term (current) drug therapy; Z91.048 Other nonmedicinal substance allergy status

== ENCOUNTER → 2024-12-18 | Outpatient (RCR) | payer MEDICARE ==
[2024-12-15] MEDS: SODIUM CHLORIDE 0.9% INJ 10 ML SYR IV PRN (12:43)
[~2024-12-18] MED LIST changes: +LISI30TA4 PO; +PROM25TA12 PO
== END ==
LOC: M ONCR 11-25 10:19
PROVIDERS: ATTEND General Practice
DX: Z51.0 Encounter for antineoplastic radiation therapy (principal); C34.11 Malignant neoplasm of upper lobe, right bronchus or lung
CPT/HCPCS: 36415; 77336; 77386; 87070; 87077; 87186; 87205; J1642

== ENCOUNTER 2024-12-21 10:23 | Outpatient (RCR) | payer MEDICARE ==
[~2024-12-21 10:23] MED LIST changes: -LISI30TA4 PO; -PROM25TA12 PO
[2024-12-21] MEDS ORDERED: LISI30TA4 PO (17:30)
[2024-12-21] MEDS ORDERED: PROM25TA12 PO (17:30)
[2024-12-24] MEDS ORDERED: AMOX1SUS19 PO (13:18)
[2024-12-24] MEDS ORDERED: MORP30TASA PO (13:18)
[2024-12-24] MEDS ORDERED: HYOS125TA PO (13:18)
[2024-12-24] MEDS ORDERED: GABA-1172 PO (13:18)
[2024-12-24] MEDS ORDERED: DOXY100T PO (13:18)
[2024-12-24] MEDS ORDERED: ATIV1TAB10 PO (13:18)
[2024-12-24] MEDS ORDERED: PROM25TA12 PO (13:25)
[2024-12-24] MEDS ORDERED: PANT40TA29 PO (13:25)
[2024-12-24] MEDS ORDERED: ATIV1TAB7 PO (13:25)
[2024-12-24] MEDS ORDERED: OLAN5ZYD PO (13:25)
[2024-12-24] MEDS ORDERED: ATRO2DRO4 SL (13:25)
[2024-12-24] MEDS ORDERED: VENL75CA47 PO (13:25)
[2024-12-24] MEDS ORDERED: ONDA-83 PO (13:25)
[2024-12-24] MEDS ORDERED: SUCR1SS PO (13:25)
[2024-12-24] MEDS ORDERED: OXYC30TA PO (13:29)
[2024-12-24] MEDS ORDERED: LIDO5TD TD (13:29)
[2024-12-24] MEDS ORDERED: ACET32TAB PO (13:29)
[2024-12-24] MEDS ORDERED: MYLASSUD PO (13:29)
[2024-12-24] MEDS ORDERED: MORP1CAP PO (15:25)
[2024-12-24] MEDS ORDERED: LIDO1ADH20 TP (15:27)
[2024-12-28] MEDS ORDERED: MORP1TAB21 PO (11:13)
== END 2025-01-18 ==
LOC: M ONCR 10:23
PROVIDERS: ATTEND General Practice
DX: Z51.0 Encounter for antineoplastic radiation therapy (principal); C34.11 Malignant neoplasm of upper lobe, right bronchus or lung

== ENCOUNTER 2024-12-21 11:06 | Inpatient (IN) | payer MEDICARE ==
[~2024-12-21] VITALS: Ht 177.8 cm; Wt 64.7 kg
[2024-12-21] MEDS ORDERED: ONDANSETRON 4MG 2ML VIAL IV ONE (11:55)
[2024-12-21 12:27] LABS: BASO % 2.9 % (0.0-1.0); EOS % 2.9 % (0.0-3.0); HEMATOCRIT 25.8 % (42.0-52.0); HEMOGLOBIN 8.7 g/dl (13.5-17.5); LYMPH # 0.1 10^3/uL (1.5-5.0); LYMPH % 17.6 % (24.0-44.0); MEAN CORPUSCULAR HEMOGLOBIN 34.3 pg (27.0-33.0); MEAN CORPUSCULAR HGB CONC 33.7 g/dl (32.0-36.5); MEAN CORPUSCULAR VOLUME 101.6 fl (80.0-96.0); MONO # 0.1 10^3/uL (0.0-0.8); MONO % 17.6 % (2.0-8.0); RED BLOOD COUNT 2.54 10^6/uL (4.30-6.10)
[2024-12-21] MEDS: ONDANSETRON 4MG 2ML VIAL IV ONE (12:39)
[2024-12-21] MEDS: ASPIRIN 81MG CHEW TABLET PO ONE (12:39)
[2024-12-21 12:40] LABS: INR 1.04; PARTIAL THROMBOPLASTIN TIME 22.4 SECONDS (24.8-34.2); PROTHROMBIN TIME 13.9 SECONDS (12.5-14.5)
[2024-12-21] MEDS: HYDROMORPHONE HCL 0.5 MG/ 0.5 ML SYRINGE IV ONE ×3 (12:40→16:29)
[2024-12-21 12:45] LABS: NEUTROPHILS # 0.2 10^3/uL (1.5-8.5); PLATELET COUNT, AUTOMATED 35 10^3/uL (150-450)
[2024-12-21 12:46] LABS: WHITE BLOOD COUNT 0.3 10^3/uL (4.0-10.0)
[2024-12-21 12:57] LABS: CPK CREATINE PHOSPHOKINASE 128 U/L (46-171)
[2024-12-21 12:58] LABS: ALBUMIN 3.4 G/DL (3.2-5.2); ALKALINE PHOSPHATASE 71 U/L (40-129); ALT/SGPT 25 U/L (7.0-40); AST/SGOT 29 U/L (<34); BILIRUBIN,DIRECT 0.2 MG/DL (<0.4); BILIRUBIN,TOTAL 0.5 MG/DL (0.3-1.2); BLOOD UREA NITROGEN 80 MG/DL (9-23); CALCIUM LEVEL 9.2 MG/DL (8.3-10.6); CARBON DIOXIDE LEVEL 36 MMOL/L (20-31); CHLORIDE LEVEL 104 MMOL/L (98-107); CK-MB VALUE MASS < 1.0 NG/ML (<3.6); CREATININE FOR GFR 2.02 MG/DL (0.70-1.30); GLOMERULAR FILTRATION RATE 35.5 (>49); GLUCOSE, FASTING 133 MG/DL (74-106); MB/CK RELATIVE INDEX 0.78 (< OR =4); SODIUM LEVEL 151 MMOL/L (136-145); TOTAL PROTEIN 7.1 G/DL (5.7-8.2)
[2024-12-21] MEDS: NS (Normal Saline) 0.9% 1,000 ML IV ONE ×2 (13:35→18:29)
[2024-12-21 14:12] LABS: CK-MB VALUE MASS < 1.0 NG/ML (<3.6)
[2024-12-21 14:26] LABS: CPK CREATINE PHOSPHOKINASE 129 U/L (46-171); MB/CK RELATIVE INDEX 0.77 (< OR =4)
[2024-12-21 15:03] LABS: CK-MB VALUE MASS 1.2 NG/ML (<3.6)
[2024-12-21 15:04] LABS: MB/CK RELATIVE INDEX 0.94 (< OR =4)
[2024-12-21] MEDS ORDERED: MOM 30ML SUSPENSION UDC PO PRN (17:25)
[2024-12-21] MEDS ORDERED: MAALOX 30 ML SUSP *UDC PO PRN (17:25)
[2024-12-21] MEDS ORDERED: LISI30TA4 PO (17:30)
[2024-12-21] MEDS ORDERED: PROM25TA12 PO (17:30)
[2024-12-21] MEDS ORDERED: EMLA CREAM 5GM TUBE (LIDOCAINE/PRILOCAINE) TOP SCH (17:35)
[2024-12-21] MEDS ORDERED: oxyCODONE 5MG TAB PO PRN (17:35)
[2024-12-21] MEDS ORDERED: MORPHINE 4 MG/ML 1ML VIAL IV PRN (17:35)
[2024-12-21] MEDS ORDERED: HOME MED LIST COMPLETE! XX SCH (17:35)
[2024-12-21] MEDS ORDERED: PROMETHAZINE 25 MG TAB PO PRN (17:35)
[2024-12-21] MEDS: PIPERACILLIN/TAZOBACTAM SOD 4.5 GM in DEXTROSE 5% (D5W) ADV/MINI-BAG 50 ML IV ONE (18:28)
[2024-12-21] MEDS ORDERED: KCL 10MEQ/100ML SWI (KRUN) 10 MEQ in IV 1 EA IV ONE (18:40)
[2024-12-21] MEDS: methylPREDNISolone 125MG 2ML VIAL IV ONE (19:00)
[2024-12-21] MEDS: CHLORASEPTIC SPRAY MT PRN (19:01)
[2024-12-21] MEDS: ACETAMINOPHEN 325 MG TAB PO PRN (19:01)
[2024-12-21 19:15] LABS: C REACTIVE PROTEIN QUANTITATIV 1.33 MG/DL (<1.0)
[2024-12-21 19:27] LABS: PROCALCITONIN 0.1 ng/ml
[2024-12-21] MEDS: NS (Normal Saline) 0.9% 1,000 ML IV SCH (20:49)
[2024-12-21] MEDS ORDERED: HEPARIN SOD (PORCINE) 5000UNITS/ML 1ML VIAL/SYRINGE SC SCH (21:00)
[2024-12-21] MEDS: KCL 10MEQ/100ML SWI (KRUN) 10 MEQ in IV 1 EA IV SCH (21:40)
[2024-12-21] MEDS: LIDOCAINE 5% (LIDODERM) PATCH TD SCH (21:41)
[2024-12-21] MEDS: DOXYCYCLINE HYCLATE 100MG TABLET PO SCH (21:41)
[2024-12-21] MEDS: PANTOPRAZOLE 40MG TAB (PROTONIX) PO SCH (21:41)
[2024-12-21] MEDS: SUCRALFATE SUSP 1GM/10ML UD PO SCH (21:42)
[2024-12-21] MEDS: ONDANSETRON 4MG TAB PO SCH (21:42)
[2024-12-21] MEDS: OLANZapine ORAL DISINTEGRATING TAB 5MG PO SCH (21:42)
[2024-12-21] MEDS: GABAPENTIN 300 MG CAP PO SCH (21:42)
[2024-12-21] MEDS: ATORVASTATIN 20 MG TAB PO SCH (21:43)
[2024-12-21] MEDS: oxyCODONE 5MG TAB PO ONE (21:44)
[2024-12-21] MEDS: MORPHINE SULFATE TAB EXT REL 30 MG PO SCH (23:08)
[2024-12-22] MEDS: PIPERACILLIN/TAZOBACTAM SOD 4.5 GM in DEXTROSE 5% (D5W) ADV/MINI-BAG 50 ML IV SCH (00:11)
[2024-12-22] MEDS: FILGRASTIM 300MCG 0.5ML SYRINGE **SC ADMINISTRATION ONLY SC SCH (02:05)
[2024-12-22 06:23] LABS: HEMATOCRIT 22.1 % (42.0-52.0); HEMOGLOBIN 7.2 g/dl (13.5-17.5); LYMPH # 0.1 10^3/uL (1.5-5.0); LYMPH % 30.4 % (24.0-44.0); MEAN CORPUSCULAR HGB CONC 32.6 g/dl (32.0-36.5); MEAN CORPUSCULAR VOLUME 101.4 fl (80.0-96.0); MONO % 17.4 % (2.0-8.0); NEUTROPHILS % 47.9 % (36.0-66.0); RED BLOOD COUNT 2.18 10^6/uL (4.30-6.10)
[2024-12-22 06:43] LABS: CALCIUM LEVEL 8.1 MG/DL (8.3-10.6); CREATININE FOR GFR 1.77 MG/DL (0.70-1.30); GLOMERULAR FILTRATION RATE 41.3 (>49); POTASSIUM SERUM 3.4 MMOL/L (3.5-5.1)
[2024-12-22 07:03] LABS: WHITE BLOOD COUNT 0.2 10^3/uL (4.0-10.0)
[2024-12-22 07:04] LABS: NEUTROPHILS # 0.1 10^3/uL (1.5-8.5); PLATELET COUNT, AUTOMATED 22 10^3/uL (150-450)
[2024-12-22 07:22] VITALS: TEMP 97.5
[2024-12-22] MEDS: VENLAFAXINE **XR** 75MG CAPSULE PO SCH (08:54)
[2024-12-22] MEDS ORDERED: CLOPIDOGREL 75 MG TAB PO SCH (09:00)
[2024-12-22] MEDS ORDERED: NS (Normal Saline) 0.9% 1,000 ML IV ONE (09:15)
[2024-12-22] MEDS: MAGNESIUM SULFATE IN WATER 2 GM in IV 1 EA IV STA (09:21)
[2024-12-22] MEDS: CALCIUM GLUCONATE 1,000 MG in DEXTROSE 5% (D5W) MINI-BAG PLU 100 ML IV ONE (09:48)
[2024-12-22] MEDS: POTASSIUM CHLORIDE 10MEQ SR TABLET PO ONE (09:54)
[2024-12-22] MEDS: MIDODRINE 5 MG TAB PO ONE (09:59)
[2024-12-22 10:00] VITALS: BP 120/65
[2024-12-22] MEDS: oxyCODONE 5MG TAB PO PRN (10:06)
[2024-12-22 10:07] VITALS: BP 120/65
[2024-12-22] MEDS: CARVedilol 12.5 MG TAB PO ONE (10:07)
[2024-12-22] MEDS ORDERED: ATROPINE SULFATE 1% OPHTH SOLN 2ML BTL SL PRN (10:15)
[2024-12-22] MEDS ORDERED: LORazepam 1 MG TAB PO PRN ×2 (10:15→12:15)
[2024-12-22] MEDS ORDERED: HYOSCYAMINE SULFATE 0.125 MG SUBL TABLET PO PRN (10:15)
[2024-12-22 10:53] VITALS: O2SAT 99
[2024-12-22] MEDS: MORPHINE SULFATE TAB EXT REL 30 MG PO ONE (12:04)
[2024-12-22] MEDS: NS 0.45% 1,000 ML IV ONE (12:04)
[2024-12-22] MEDS: AUGMENTIN ES SUSP POWDER 600MG/5ML 125ML BTL PO SCH (12:04)
[2024-12-22] MEDS ORDERED: ONDANSETRON 4MG ORAL DISINTEGRATING TAB PO PRN (12:15)
[2024-12-22] MEDS ORDERED: SCOPOLAMINE 1MG TRANSDERMAL PATCH TOP PRN (12:15)
[2024-12-22] MEDS ORDERED: FLEET ENEMA PR PRN (12:15)
[2024-12-22] MEDS: KCL 10MEQ/100ML SWI (KRUN) 10 MEQ in IV 1 EA IV SCH (13:28)
[2024-12-22] MEDS ORDERED: KCL 10MEQ/100ML SWI (KRUN) 10 MEQ in IV 1 EA IV SCH (18:20)
[2024-12-22] MEDS: LORazepam 1 MG TAB PO SCH (21:51)
[2024-12-22] MEDS: MORPHINE SULFATE TAB EXT REL 30 MG PO SCH (23:07)
[2024-12-23] MEDS: MORPHINE 4 MG/ML 1ML VIAL IV PRN (16:03)
[2024-12-24] MEDS ORDERED: DOXY100T PO (13:18)
[2024-12-24] MEDS ORDERED: ATIV1TAB10 PO (13:18)
[2024-12-24] MEDS ORDERED: GABA-1172 PO (13:18)
[2024-12-24] MEDS ORDERED: HYOS125TA PO (13:18)
[2024-12-24] MEDS ORDERED: AMOX1SUS19 PO (13:18)
[2024-12-24] MEDS ORDERED: MORP30TASA PO (13:18)
[2024-12-24] MEDS ORDERED: PROM25TA12 PO (13:25)
[2024-12-24] MEDS ORDERED: ATIV1TAB7 PO (13:25)
[2024-12-24] MEDS ORDERED: VENL75CA47 PO (13:25)
[2024-12-24] MEDS ORDERED: ATRO2DRO4 SL (13:25)
[2024-12-24] MEDS ORDERED: PANT40TA29 PO (13:25)
[2024-12-24] MEDS ORDERED: OLAN5ZYD PO (13:25)
[2024-12-24] MEDS ORDERED: ONDA-83 PO (13:25)
[2024-12-24] MEDS ORDERED: SUCR1SS PO (13:25)
[2024-12-24] MEDS ORDERED: LIDO5TD TD (13:29)
[2024-12-24] MEDS ORDERED: OXYC30TA PO (13:29)
[2024-12-24] MEDS ORDERED: MYLASSUD PO (13:29)
[2024-12-24] MEDS ORDERED: ACET32TAB PO (13:29)
[2024-12-24] MEDS ORDERED: MORP1CAP PO (15:25)
[2024-12-24] MEDS ORDERED: LIDO1ADH20 TP (15:27)
[2024-12-25 21:58] LABS: MYCOPLASMA PNEUMONIAE IGG 1.42 (<=0.90)
[2024-12-26 19:57] LABS: URINE STREP PNEUMONIAE ANTIGEN NOT DETECTED (NOT DETECT)
== END 2024-12-24 14:50 | disposition hospice, home (50) | DRG 391 ==
LOC: M ED 11:06 → M ED INP 17:23 → M MS4PR 12-22 21:38
PROVIDERS: ADMIT Student in an Organized Health Care Education/Training Program; ATTEND General Practice
PROC: B246ZZZ Ultrasonography of Right and Left Heart (ICD-10-PCS; principal; 2024-12-23)
DX: R11.2 Nausea with vomiting, unspecified (principal); J18.9 Pneumonia, unspecified organism; D61.810 Antineoplastic chemotherapy induced pancytopenia; N17.9 Acute kidney failure, unspecified; E87.0 Hyperosmolality and hypernatremia; E46 Unspecified protein-calorie malnutrition; E87.3 Alkalosis; I47.20 Ventricular tachycardia, unspecified; E87.6 Hypokalemia; I10 Essential (primary) hypertension; T45.1X5A Adverse effect of antineoplastic and immunosuppressive drugs, initial encounter; I11.0 Hypertensive heart disease with heart failure; I50.9 Heart failure, unspecified; I25.10 Atherosclerotic heart disease of native coronary artery without angina pectoris; E78.5 Hyperlipidemia, unspecified; E87.8 Other disorders of electrolyte and fluid balance, not elsewhere classified; Z51.5 Encounter for palliative care; Z66 Do not resuscitate; E83.52 Hypercalcemia; M19.90 Unspecified osteoarthritis, unspecified site; E86.0 Dehydration; G89.29 Other chronic pain; M54.50 Low back pain, unspecified; K21.00 Gastro-esophageal reflux disease with esophagitis, without bleeding; R53.1 Weakness; Z92.21 Personal history of antineoplastic chemotherapy; Z92.3 Personal history of irradiation; Z95.1 Presence of aortocoronary bypass graft; Z98.1 Arthrodesis status; Z98.49 Cataract extraction status, unspecified eye; Z79.82 Long term (current) use of aspirin; Z79.02 Long term (current) use of antithrombotics/antiplatelets; Z79.899 Other long term (current) drug therapy; Z91.048 Other nonmedicinal substance allergy status